=== PATIENT | male | born 1950 | race Caucasian/White ===

== ENCOUNTER 2020-04-24 06:07 | Day surgery (SDC) | payer MEDICARE, OTHER ==
[~2020-04-24] VITALS: Ht 180.3 cm; Wt 85.0 kg
[2020-04-24] MEDS ORDERED: KAPSPARGO SPRIN50 MG PO (06:33)
[2020-04-24] MEDS ORDERED: Flomax0.4 MG PO (06:35)
[2020-04-24] MEDS ORDERED: ASPI81CH PO (06:35)
[2020-04-24] MEDS ORDERED: ATOR40TA PO (06:36)
[2020-04-24] MEDS ORDERED: LOSA25 PO (06:36)
--- NOTE | 2020-04-24 07:54 | NUR ---
PT TO RECOVERY ROOM POST PROCEDURE. PT DROWSY, BUT CONVERSING APPROPRIATELY, DENIES PAIN POST PROCEDURE. MONITOR AFIB 70-80'S, B/P 99/70, AFEBRILE, SPO2 95% RA. R RADIAL SITE NO SWELLING/HEMATOMA, TR BAND IN PLACE 8 CC AIR AT [id number]. PT TAKING SIPS OF COFFEE WITHOUT ISSUE.
--- NOTE | 2020-04-24 10:45 | NUR ---
PT DRESSED SELF WITHOUT ISSUE, SITE UNCHANGED. PT AMB TO BATHROOM, GAIT STEADY; SITE UNCHANGED WITH ACTIVITY. TR BAND REMOVED, CLOTH DOT AND WRIST IMMOBILIER PLACED; IV REMOVED-CANNULA INTACT.
--- NOTE | 2020-04-24 10:51 | NUR ---
PT RECEIVED DISCHARGE INSTRUCTIONS, MED LIST AND AFTER CARE INSTRUCTIONS; VERBALIZED GOOD UNDERSTANDING. PT DECLINED SLING. PT LEFT FACILITY VIA W/C, CONDITION STABLE.
== END 2020-04-24 10:51 | disposition home or self-care (01) ==
LOC: MHTC 06:07
PROC: B201YZZ Plain Radiography of Multiple Coronary Arteries using Other Contrast (ICD-10-PCS; principal; 2020-04-24)
PROC: 4A023N7 Measurement of Cardiac Sampling and Pressure, Left Heart, Percutaneous Approach (ICD-10-PCS; principal; 2020-04-24)
DX: I25.10 Atherosclerotic heart disease of native coronary artery without angina pectoris (principal); E78.5 Hyperlipidemia, unspecified; I48.91 Unspecified atrial fibrillation; I08.1 Rheumatic disorders of both mitral and tricuspid valves; I50.20 Unspecified systolic (congestive) heart failure; N40.0 Benign prostatic hyperplasia without lower urinary tract symptoms; Z87.891 Personal history of nicotine dependence; Z79.82 Long term (current) use of aspirin; Z79.899 Other long term (current) drug therapy
CPT/HCPCS: 76937; 93458; 99152; 99153; C1769; C1894; J1644; J2250; J3010; J7030; J7050; Q9967

== ENCOUNTER 2020-05-29 05:51 | Day surgery (SDC) | payer MEDICARE, OTHER ==
[~2020-05-29] VITALS: Ht 180.3 cm; Wt 86.0 kg
[~2020-05-29 05:51] MED LIST: ASPI81CH PO; ATOR40TA PO; ELIQUIS5 MG PO; Flomax0.4 MG PO; KAPSPARGO SPRIN50 MG PO; LOSA25 PO
== END 2020-05-29 23:44 | disposition home or self-care (01) ==
LOC: MHTC 05:51
DX: I48.0 Paroxysmal atrial fibrillation (principal); E78.5 Hyperlipidemia, unspecified; I25.10 Atherosclerotic heart disease of native coronary artery without angina pectoris; I50.20 Unspecified systolic (congestive) heart failure; I42.8 Other cardiomyopathies; I77.819 Aortic ectasia, unspecified site; I08.1 Rheumatic disorders of both mitral and tricuspid valves; I45.81 Long QT syndrome; N40.0 Benign prostatic hyperplasia without lower urinary tract symptoms; Z87.891 Personal history of nicotine dependence; Z79.01 Long term (current) use of anticoagulants; Z79.899 Other long term (current) drug therapy
CPT/HCPCS: 92960; 93005; 93010; 99152; J2250; J3010; J7030

== ENCOUNTER → 2021-06-28 | Outpatient (CLI) | payer MEDICARE, OTHER ==
[2021-06-28 12:26] LABS: BASOPHILS ABSOLUTE AUTO 0.06 K/mm3 (0.00-0.23); BASOPHILS PERCENT AUTO 1 % (0-2); EOSINOPHILS ABSOLUTE AUTO 0.18 K/mm3 (0.00-0.68); EOSINOPHILS PERCENT AUTO 3 % (0-6); Hematocrit 44.2 % (37.0-53.0); Hemoglobin 15.3 g/dL (13.5-17.5); IMMATURE GRAN ABSOLUTE AUTO 0.02 K/mm3 (0.00-0.10); IMMATURE GRAN PERCENT AUTO 0 % (0-1); LYMPHOCYTES ABSOLUTE AUTO 1.42 K/mm3 (0.84-5.20); LYMPHOCYTES PERCENT AUTO 22 % (21-46); MONOCYTES ABSOLUTE AUTO 0.69 K/mm3 (0.16-1.47); MONOCYTES PERCENT AUTO 11 % (4-13); Mean Corpuscular HGB 30.9 pg (26.0-34.0); Mean Corpuscular HGB Conc 34.6 g/dL (31.5-36.5); Mean Corpuscular Volume 89 fL (80-100); Mean Platelet Volume 10.4 fL (9.1-12.4); NEUTROPHILS ABSOLUTE AUTO 4.04 K/mm3 (1.96-9.15); NEUTROPHILS PERCENT AUTO 63 % (41-73); Platelet Count 184 K/mm3 (150-400); RDW Coefficient Variation 12.7 % (11.7-14.2); RDW Standard Deviation 41.9 fL (35.1-46.3); Red Blood Cell Count 4.95 M/mm3 (4.30-5.90); White Blood Cell Count 6.41 K/mm3 (4.00-11.30)
[2021-06-28 12:48] LABS: Alanine Aminotransfer (ALT/SGP 32 U/L (12-78); Albumin, Blood 3.7 g/dL (3.4-5.0); Albumin/Globulin Ratio 1.3 (0.8-1.8); Alk Phos 74 U/L (40-126); Anion Gap 9 mmol/L (6-16); Aspartate Aminotrans (AST/SGOT 23 U/L (12-37); Bilirubin, Total 0.6 mg/dL (0.1-1.0); Blood Urea Nitrogen 21 mg/dL (8-24); Bun/Creatinine Ratio 25.3 (12.0-20.0); CO2, Blood 27 mmol/L (21-32); Calcium, Blood 8.8 mg/dL (8.5-10.1); Chloride, Blood 106 mmol/L (98-108); Creatinine, Blood 0.83 mg/dL (0.60-1.20); Globulin, Blood 2.9 g/dL (2.2-4.0); Glomerular Filtration Rate >60 (60-); Glucose, Blood 94 mg/dL (70-99); Potassium, Blood 4.3 mmol/L (3.5-5.5); Sodium, Blood 142 mmol/L (136-145); Thyroid Stimulating Hormone 1.811 uIU/mL (0.360-4.800); Total Protein, Blood 6.6 g/dL (6.4-8.2)
== END ==
LOC: LAB SHORT 12:22
PROVIDERS: Family Medicine
DX: I48.0 Paroxysmal atrial fibrillation (principal)
CPT/HCPCS: 80053; 83735; 84443; 84484; 85025

== ENCOUNTER 2021-12-13 08:16 | Day surgery (SDC) | payer MEDICARE, OTHER ==
[~2021-12-13] VITALS: Ht 177.8 cm; Wt 87.0 kg
[2021-12-13] MEDS ORDERED: AMIODARONE HCL400 M2 PO (09:29)
[2021-12-13] MEDS ORDERED: KAPSPARGO SPRIN25 MG PO (09:30)
--- NOTE | 2021-12-13 10:50 | NUR ---
PT AWAKE AND CONVERSINGA APPROPRIATELY; DENIES PAIN POST PROCEDURE. MONITOR SB 40'S, VSS. DR SANCHEZ IN TO DISCUSS PROCEDURE RESULTS WITH PT, ADJUSTED METOPROLOL XL TO DAILY.
--- NOTE | 2021-12-13 11:05 | NUR ---
PT DRESSED SELF WITHOUT ISSUE, IV REMOVED-CANNULA INTACT.
--- NOTE | 2021-12-13 11:15 | NUR ---
PT RECEIVED DISCHARGE INSTRUCTIONS, MED LIST AND AFTER CARE INSTRUCTIONS; VERBALIZED GOOD UNDERSTANDING. PT LEFT FACILITY VIA W/C, CONDITION STABLE.
== END 2021-12-13 11:00 | disposition home or self-care (01) ==
LOC: ORSCMMR 08:16 → MHTC 08:16 → ORD 09:30 → ORSCMMR 09:30 → ORD 10:00 → MHTC 11:00 → ORSCMMR 11:00
DX: I77.819 Aortic ectasia, unspecified site (principal); I48.0 Paroxysmal atrial fibrillation; K21.9 Gastro-esophageal reflux disease without esophagitis; E78.5 Hyperlipidemia, unspecified; I50.20 Unspecified systolic (congestive) heart failure; I08.1 Rheumatic disorders of both mitral and tricuspid valves; I25.10 Atherosclerotic heart disease of native coronary artery without angina pectoris; Z87.891 Personal history of nicotine dependence; Z79.01 Long term (current) use of anticoagulants; Z79.899 Other long term (current) drug therapy
CPT/HCPCS: 92960; 93005; 93010; 93312; 93325; A9270; J2704; J7030